=== PATIENT | male | born 1995 | race Asian ===

== ENCOUNTER 2019-06-10 13:54 | Emergency (ER) | payer OTHER ==
[~2019-06-10] VITALS: Ht 188 cm; Wt 84.0 kg
[~2019-06-10 13:54] MED LIST: NO HOME MEDICATIONS; PREDNISONE20 MG PO; PROVENTIL0.09 MG/A1
[2019-06-10 14:00] VITALS: TEMP 98.4
[2019-06-10] MEDS ORDERED: AMOXICILLIN 8751 TAB PO (17:57)
[2019-06-10 18:14] VITALS: BP 142/72; PULSE 54
== END 2019-06-10 18:14 | disposition home or self-care (01) ==
LOC: COL.ER 13:54
DX: K08.89 Other specified disorders of teeth and supporting structures (principal)